=== PATIENT | female | born 1955 | race Caucasian/White ===

== ENCOUNTER 2020-02-29 02:41 | Emergency (ER) | payer MEDICARE, MEDICAID, SELFPAY ==
[2020-02-29 02:48] VITALS: BP 102/38; PULSE 60; RESP 18; TEMP 36.6; O2SAT 100; BMI 27.4
--- NOTE | 2020-02-29 03:34 | ED.MEDCLEAR ---
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 Came here for assistance in placement no other active complaints Related Information Allergies Allergy/AdvReac Type Severity Reaction Status Date / Time No Known Allergies Allergy Verified 02/29/20 03:35 Review of Systems Review of Systems: Constitutional : No Weight loss, No Fever, No Chills ENT/Mouth : No sore throat, No Rhinorrhea Eyes: No Eye Pain, No Swelling Cardiovascular : No Chest Pain, no palpitations Respiratory : No Cough, No Sputum, no shortness of breath Gastrointestinal : no Nausea, No Vomiting, No Diarrhea, No abdominal Pain, no black stools Genitourinary : No Dysuria, No Urinary Frequency Musculoskeletal : No joint pain, No Myalgias, No Joint Swelling Skin : No Skin Lesions, No rash Neuro : ++ Weakness, No Numbness, No Dizziness, No Headache Psych : No Anxiety/Panic, No Depression Heme/Lymph: No Bruising, No Lymphadenopathy Endocrine : No Polyuria, No Polydipsia All other systems reviewed and are negative PMFSH Past Medical History 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 Oriented X3. No acute distress. Eyes: L Pupils ,round and reactive to light. Right pupil fixed with no perception of light ENT: Pharynx normal. Neck: Normal inspection. Neck supple. CVS: Normal heart rate and rhythm. Pulses normal. Respiratory: No respiratory distress. Breath sounds normal. Abdomen: Soft and nontender. Bowel sounds are present, no mass palpable, no CVA tenderness Skin: Skin warm and dry. Normal skin color. Normal skin turgor. Extremities: No lower extremity edema. Neuro: Oriented X 3. Right leg 2/5 weakness No sensory deficit. Course Course Course Narrative: Patient medically cleared for placement will get health and social care teacher involved MDM - Medical Clearance Lab Data Result diagrams: 02/29/20 04:45 02/29/20 04:45 Labs: Lab Results 02/29/20 02/29/20 02/29/20 Range/Units 04:45 04:45 04:45 WBC 8.2 (4.8-10.8) X10*3/uL RBC 3.77 L (4.20-5.50) X10*6/uL Hgb 12.0 (12.0-16.0) g/dl Hct 35.6 L (37-47) % MCV 94.4 (80-98) fL MCH 31.8 (27.0-33.0) pg MCHC 33.7 (31.0-35.0) g/dl RDW 13.1 (11.0-16.0) % Plt Count 255 (160-400) X10*3/uL MPV 9.5 (9.4-12.3) fL Immature Gran % (Auto) 0.1 (0.0-0.4) % Neut % (Auto) 55.5 (45-73) % Lymph % (Auto) 30.2 (20-40) % [place] % (Auto) 9.9 (2-11) % Eos % (Auto) 3.9 (0-4) % Baso % (Auto) 0.4 (0-2) % Lymph # (Auto) 2.5 (1.2-4.9) X10*3/uL [place] # (Auto) 0.8 (0.1-1.2) X10*3/uL Eos # (Auto) 0.3 (0.0-0.4) X10*3/uL Baso # (Auto) 0.0 (0.0-0.2) X10*3/uL Abs Immat Gran (auto) 0.01 (0.00-0.03) X10*3/uL Absolute Neuts (auto) 4.5 (2.0-8.3) X10*3/uL Absolute Nucleated RBC 0.000 (0.0-0.012) X10*3/uL Nucleated RBC % (auto) 0.0 (0.0-0.2) /100WBC Sodium 145 (135-145) mmol/L Potassium 3.5 (3.3-5.1) mmol/l Chloride 110 H (96-108) mmol/L Carbon Dioxide 28 (22-29) mmol/L Anion Gap 11 L (12-20) BUN 11 (9-16) mg/dL Creatinine 0.61 (0.5-1.4) mg/dL Estim Creat Clear Calc 92.1 Estimated GFR > 60 Random Glucose 125 H (60-115) mg/dL Calcium 8.2 L (8.4-10.2) mg/dL Total Bilirubin < 0.2 (0.0-1.0) mg/dL Direct Bilirubin < 0.2 (0.0-0.5) mg/dL AST 13 (5-31) U/L ALT 18 (0-31) U/L Alkaline Phosphatase 70 (39-117) U/L Total Protein 5.6 L (6.5-8.0) g/dL Albumin 3.5 (3.5-5.0) g/dL COVID-19 (JOURDAN) Negative (Negative) COVID-19 Clin Com See Note
--- NOTE | 2020-02-29 03:36 | ECG_ITS ---
Test Reason : nh placement Blood Pressure : / mmHG Vent. Rate : 056 BPM Atrial Rate : 056 BPM P-R Int : 148 ms QRS Dur : 086 ms QT Int : 416 ms P-R-T Axes : 064 -44 047 degrees QTc Int : 401 ms Sinus bradycardia Left axis deviation Abnormal ECG No previous ECGs available Referred By: Ruel Thomson Electronically Signed By:KEVIN HOLM
[2020-02-29 04:00] VITALS: RESP 18
--- NOTE | 2020-02-29 04:10 | PC.NURSE ---
pt is refusing all blood work, covid swab, and ekg at this time. 3 attempts were made. Per patient you just don't fucking get it. I want to be left the fuck alone. I won't be undressed. Fuck you .
[2020-02-29 04:53] LABS: Basophils Percent Auto 0.4 % (0-2); Eosinophils Absolute Auto 0.3 X10*3/uL (0.0-0.4); Eosinophils Percent Auto 3.9 % (0-4); Hematocrit 35.6 % (37-47); Imm Gran Abs Auto 0.01 X10*3/uL (0.00-0.03); Imm Gran Pct Auto 0.1 % (0.0-0.4); Lymphocytes Absolute Auto 2.5 X10*3/uL (1.2-4.9); Lymphocytes Percent Auto 30.2 % (20-40); MANUAL DIFF FLAG NO; Mean Corpuscular HGB Conc 33.7 g/dl (31.0-35.0); Mean Corpuscular Hemoglobin 31.8 pg (27.0-33.0); Mean Corpuscular Volume 94.4 fL (80-98); Mean Platelet Volume 9.5 fL (9.4-12.3); Monocytes Absolute Auto 0.8 X10*3/uL (0.1-1.2); Monocytes Percent Auto 9.9 % (2-11); Neutrophils Absolute Auto 4.5 X10*3/uL (2.0-8.3); Neutrophils Percent Auto 55.5 % (45-73); Platelet Count 255 X10*3/uL (160-400); Red Blood Count 3.77 X10*6/uL (4.20-5.50); Red Cell Distribution Width 13.1 % (11.0-16.0); White Blood Count 8.2 X10*3/uL (4.8-10.8)
[2020-02-29 05:16] LABS: COVID-19 Test Negative (Negative)
[2020-02-29 05:26] LABS: Alanine Aminotransferase 18 U/L (0-31); Albumin Level 3.5 g/dL (3.5-5.0); Alkaline Phosphatase 70 U/L (39-117); Anion Gap 11 (12-20); Aspartate Amino Transferase 13 U/L (5-31); Bilirubin Direct < 0.2 mg/dL (0.0-0.5); Bilirubin Total < 0.2 mg/dL (0.0-1.0); Blood Urea Nitrogen 11 mg/dL (9-16); Calcium 8.2 mg/dL (8.4-10.2); Carbon Dioxide 28 mmol/L (22-29); Chloride 110 mmol/L (96-108); Creatinine Clr Calc Pharmacy 92.1; Estimated Glomerular Filt Rate > 60; Glucose Random 125 mg/dL (60-115); Potassium 3.5 mmol/l (3.3-5.1); Sodium 145 mmol/L (135-145); Total Protein 5.6 g/dL (6.5-8.0)
--- NOTE | 2020-02-29 10:30 | PC.NURSE ---
CASE MGMT IN TO SPEAK WITH PT. PT REQUESTING HOME CARE, NOT [facility]. TO GO HOME. USING BEDPAN
[2020-02-29 10:53] VITALS: BP 101/53; PULSE 55; RESP 16; O2SAT 96
--- NOTE | 2020-02-29 11:02 | MHC.CM.ED ---
CM met with patient at the bedside who reports she is looking for more help at home. Patient does not want to go to [facility]/LTC and reports she is staying at the [facility]. CM gave contact information for [facility] and [facility] live-in care. Reported to nurse and MD patient is all set to go home.
[2020-02-29 12:00] VITALS: BP 102/55; PULSE 62; RESP 18; TEMP 36.6; O2SAT 98
--- NOTE | 2020-02-29 13:05 | ED_ITS ---
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 THOMSON AT ABOUT 07:00, THE PLAN WAS TO WAIT FOR PAINT CREW SUPERVISOR, THE PATIENT WAS SEEN BY THE PAINT CREW SUPERVISOR APPROPRIATE SERVICES WERE ARRANGED, THE PATIENT IS VERY COMFORTABLE WITH A DISCHARGE SHE WILL BE DISCHARGED MDM - Medical Clearance Lab Data Attestation: I reviewed the patient's lab results. Result diagrams: 02/29/20 04:45 02/29/20 04:45 Labs: Lab Results 02/29/20 02/29/20 02/29/20 Range/Units 04:45 04:45 04:45 WBC 8.2 (4.8-10.8) X10*3/uL RBC 3.77 L (4.20-5.50) X10*6/uL Hgb 12.0 (12.0-16.0) g/dl Hct 35.6 L (37-47) % MCV 94.4 (80-98) fL MCH 31.8 (27.0-33.0) pg MCHC 33.7 (31.0-35.0) g/dl RDW 13.1 (11.0-16.0) % Plt Count 255 (160-400) X10*3/uL MPV 9.5 (9.4-12.3) fL Immature Gran % (Auto) 0.1 (0.0-0.4) % Neut % (Auto) 55.5 (45-73) % Lymph % (Auto) 30.2 (20-40) % [place] % (Auto) 9.9 (2-11) % Eos % (Auto) 3.9 (0-4) % Baso % (Auto) 0.4 (0-2) % Lymph # (Auto) 2.5 (1.2-4.9) X10*3/uL [place] # (Auto) 0.8 (0.1-1.2) X10*3/uL Eos # (Auto) 0.3 (0.0-0.4) X10*3/uL Baso # (Auto) 0.0 (0.0-0.2) X10*3/uL Abs Immat Gran (auto) 0.01 (0.00-0.03) X10*3/uL Absolute Neuts (auto) 4.5 (2.0-8.3) X10*3/uL Absolute Nucleated RBC 0.000 (0.0-0.012) X10*3/uL Nucleated RBC % (auto) 0.0 (0.0-0.2) /100WBC Sodium 145 (135-145) mmol/L Potassium 3.5 (3.3-5.1) mmol/l Chloride 110 H (96-108) mmol/L Carbon Dioxide 28 (22-29) mmol/L Anion Gap 11 L (12-20) BUN 11 (9-16) mg/dL Creatinine 0.61 (0.5-1.4) mg/dL Estim Creat Clear Calc 92.1 Estimated GFR > 60 Random Glucose 125 H (60-115) mg/dL Calcium 8.2 L (8.4-10.2) mg/dL Total Bilirubin < 0.2 (0.0-1.0) mg/dL Direct Bilirubin < 0.2 (0.0-0.5) mg/dL AST 13 (5-31) U/L ALT 18 (0-31) U/L Alkaline Phosphatase 70 (39-117) U/L Total Protein 5.6 L (6.5-8.0) g/dL Albumin 3.5 (3.5-5.0) g/dL COVID-19 (JOURDAN) Negative (Negative) COVID-19 Clin Com See Note Discharge Plan Discharge Clinical Impression: Weakness Patient Disposition: Home, Self-Care Instructions: Weakness (ED) Referrals: Physician,Unknown [Primary Care Provider] - 2 days (PLEASE FOLLOW-UP WITH YOUR PRIMARY CARE PHYSICIAN OR RETURN IF YOU WORSEN FEVER ANY CONCERN)
== END 2020-02-29 13:32 | disposition home or self-care (01) ==
PROVIDERS: Internal Medicine; Emergency Provider Emergency Medicine
DX: R53.1 Weakness (principal); F17.200 Nicotine dependence, unspecified, uncomplicated; Z71.6 Tobacco abuse counseling; Z20.828 Contact with and (suspected) exposure to other viral communicable diseases; Z79.899 Other long term (current) drug therapy
CPT/HCPCS: 36415; 80048; 80076; 85025; 87635; 93005; 99284

== ENCOUNTER 2020-03-12 09:18 | Emergency (ER) | payer MEDICARE, MEDICAID, SELFPAY ==
[2020-03-12 09:28] VITALS: BP 126/62; PULSE 58; RESP 16; TEMP 36.6; O2SAT 97; BMI 67.6
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
== END 2020-03-12 11:40 | disposition home or self-care (01) ==
PROVIDERS: Emergency Provider Emergency Medicine
DX: Z74.2 Need for assistance at home and no other household member able to render care (principal); Z99.3 Dependence on wheelchair
CPT/HCPCS: 99283

== ENCOUNTER 2020-03-17 00:31 | Emergency (ER) | payer MEDICARE, MEDICAID, SELFPAY ==
[2020-03-17 00:39] VITALS: RESP 18; BMI 27.4
--- NOTE | 2020-03-17 00:50 | XR_ITS ---
EXAMINATION: XR LUMBOSACRAL SPINE CLINICAL INFORMATION: Severe pain, rule out compression fracture COMPARISON: None TECHNIQUE: Three views of the lumbosacral spine. FINDINGS: There is anatomic alignment of the lumbar vertebral bodies and posterior elements. There is slight superior endplate loss of height at L2 and L4, age-indeterminate. Mild multilevel endplate osteophytes are noted. There is suspected facet arthropathy of the lower lumbar spine. Sacroiliac joints appear intact. Vascular calcification noted. XR/XR lumbar spine 2-3V IMPRESSION: Slightly superior endplate loss of height at L2 and L4, age-indeterminate.
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
[2020-03-17 00:53] VITALS: BP 118/41; PULSE 56; RESP 18; TEMP 36.7; O2SAT 96
[2020-03-17 01:05] LABS: MANUAL DIFF FLAG NO
[2020-03-17 01:06] LABS: Basophils Percent Auto 0.4 % (0-2); Eosinophils Absolute Auto 0.4 X10*3/uL (0.0-0.4); Eosinophils Percent Auto 5.4 % (0-4); Hematocrit 40.9 % (37-47); Hemoglobin 13.7 g/dl (12.0-16.0); Imm Gran Abs Auto 0.01 X10*3/uL (0.00-0.03); Imm Gran Pct Auto 0.1 % (0.0-0.4); Lymphocytes Absolute Auto 2.3 X10*3/uL (1.2-4.9); Lymphocytes Percent Auto 31.5 % (20-40); Mean Corpuscular HGB Conc 33.5 g/dl (31.0-35.0); Mean Corpuscular Hemoglobin 31.9 pg (27.0-33.0); Mean Corpuscular Volume 95.1 fL (80-98); Mean Platelet Volume 8.6 fL (9.4-12.3); Monocytes Absolute Auto 0.8 X10*3/uL (0.1-1.2); Monocytes Percent Auto 11.3 % (2-11); Neutrophils Absolute Auto 3.8 X10*3/uL (2.0-8.3); Neutrophils Percent Auto 51.3 % (45-73); Platelet Count 317 X10*3/uL (160-400); White Blood Count 7.4 X10*3/uL (4.8-10.8)
[2020-03-17] MEDS: Ketorolac Tromethamine 30 MG/ML VIAL 60 MG IM (01:09)
[2020-03-17 01:28] LABS: Alanine Aminotransferase 20 U/L (0-31); Albumin Level 4.2 g/dL (3.5-5.0); Alkaline Phosphatase 86 U/L (39-117); Anion Gap 12 (12-20); Aspartate Amino Transferase 12 U/L (5-31); Bilirubin Total 0.4 mg/dL (0.0-1.0); Blood Urea Nitrogen 18 mg/dL (9-16); Calcium 9.5 mg/dL (8.4-10.2); Carbon Dioxide 30 mmol/L (22-29); Chloride 102 mmol/L (96-108); Creatinine Clr Calc Pharmacy 79.1; Estimated Glomerular Filt Rate > 60; Glucose Random 112 mg/dL (60-115); Potassium 4.1 mmol/l (3.3-5.1); Sodium 140 mmol/L (135-145)
[2020-03-17 02:00] VITALS: RESP 18
== END 2020-03-17 02:55 | disposition home or self-care (01) ==
PROVIDERS: Emergency Provider Emergency Medicine Emergency Medical Services
DX: M54.5 Low back pain (principal); Z87.820 Personal history of traumatic brain injury; F17.210 Nicotine dependence, cigarettes, uncomplicated; Z71.6 Tobacco abuse counseling
CPT/HCPCS: 36415; 72100; 80053; 82550; 85025; 96372; 99284; J1885

== ENCOUNTER 2020-03-19 17:51 | Emergency (ER) | payer MEDICARE, MEDICAID, SELFPAY ==
[2020-03-19 20:27] VITALS: BP 116/47; PULSE 63; RESP 16; TEMP 36.4; O2SAT 95
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
[2020-03-19 22:50] VITALS: BP 119/52; PULSE 58; PULSE 61; RESP 16; TEMP 37.1; O2SAT 96; O2SAT 98; BMI 33.5
--- NOTE | 2020-03-19 23:01 | PC.NURSE ---
PT HAS OWN W/C THIS IS HER BASE.
--- NOTE | 2020-03-20 00:21 | PC.NURSE ---
pt was informed that we had no room and case management spoke with her. pt has a place to stay but does not want to stay with mother inlaw and . winding department supervisor spoke with pt and will can wait in waiting room and go to care home in morning.
--- NOTE | 2020-03-20 00:23 | PC.NURSE ---
pt refusing to use restroom with assist requesting a table and a bedpan states she slide it under herself on her own w/c and pee. pt was informed that no shelters are open at this hour. pt decided to leave and she proceed to dump her bed edmonds on floor. pt left without paperwork.
== END 2020-03-20 00:32 | disposition home or self-care (01) ==
PROVIDERS: Emergency Provider Emergency Medicine
DX: Z72.89 Other problems related to lifestyle (principal)
CPT/HCPCS: 99283; 99284

== ENCOUNTER 2020-03-20 09:30 | Emergency (ER) | payer MEDICARE, MEDICAID, SELFPAY ==
[2020-03-20 09:41] VITALS: BP 114/64; PULSE 62; RESP 18; TEMP 36.3; O2SAT 96; BMI 28.3
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
== END 2020-03-20 11:23 | disposition home or self-care (01) ==
PROVIDERS: Emergency Provider Internal Medicine
DX: R62.7 Adult failure to thrive (principal); Z59.0 Homelessness; F17.200 Nicotine dependence, unspecified, uncomplicated; Z71.6 Tobacco abuse counseling; Z79.899 Other long term (current) drug therapy
CPT/HCPCS: 99283

== ENCOUNTER 2020-03-20 14:01 | Emergency (ER) | payer MEDICARE, MEDICAID, SELFPAY ==
[2020-03-20 14:12] VITALS: BP 121/75; PULSE 73; RESP 16; TEMP 36; O2SAT 97; BMI 29.2
--- NOTE | 2020-03-20 14:37 | PC.NURSE ---
polly from [facility] called regarding pt status
--- NOTE | 2020-03-20 15:17 | PC.NURSE ---
care plan consult in place. pt continues to refuse snf/rehab placement. she does not have another safe discharge plan in place
--- NOTE | 2020-03-20 15:19 | MHC.CM.ED ---
Patient returned to ER again today. T/W attempted to call patient's , Ion at telephone number listed [phone]. Outgoing message is for someone named Joann. Pro, propellant charge zone assembler aware.
--- NOTE | 2020-03-20 15:34 | PC.NURSE ---
pt was provided snacks and drinks. Awaiting CARE team consult.
--- NOTE | 2020-03-20 15:35 | ED_ITS ---
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 Therefore they brought the patient back to our emergency department and patient reports that she did not know that the house had the signs and all the tape up that she did not know that it was not safe to live in. I explained to her that she told us earlier today that the house was safe to live in and that she confirmed that the electricity was on. EMS confirmed that the electricity was on although it is not safe to live in the home therefore patient is back here looking for housing. Denies any SI/HI/auditory visual h allucinations thoughts of self-injury. Reports she has no money to stay in a hotel. Reports that her is trying to get the restraining order that she was unaware about taken off of her so that she can reside in the house so her in her sllhbn-eo-ogy's house in [place]. Patient does not want to go to a skilled nursing. We attempted to give her multiple resources for homeless shelters although they are same due to her being wheelchair-bound she cannot go to a homeless intermediate. Patient denies any additional complaints or concerns at this time. Patient on both visits is very rude swearing name calling saying ?bitch fuck you.? Saying that she is tired of explaining her situation to all of us. Saying that she would do anything including lie to get out of this ?hell hole.? Related Data Previous Rx's Medication Instructions Recorded cyclobenzaprine 10 mg PO Q8H PRN #15 tab 03/17/20 cyclobenzaprine 20 mg PO Q8H PRN #15 tab 03/17/20 ibuprofen 600 mg PO TID PRN #20 tab 03/18/20 Allergies Allergy/AdvReac Type Severity Reaction Status Date / Time No Known Allergies Allergy Verified 02/29/20 03:35 Review of Systems Review of Systems: Constitutional : No Weight loss, No Fever, No Chills, No Night Sweats, No Fatigue, No Malaise ENT/Mouth : No Hearing loss, No Ear Pain, No Nasal Congestion, No Sinus Pain, No Hoarseness, No sore throat, No Rhinorrhea, No Swallowing Difficulty Eyes: No Eye Pain, No Swelling, No Redness, No Foreign Body, No Discharge, No Vision Changes Cardiovascular : No Chest Pain, No SOB, No Dyspnea on Exertion, No Orthopnea, No Edema, No Palpitations Respiratory : No Cough, No Sputum, No Wheezing, No Smoke Exposure, No Dyspnea Gastrointestinal : No Nausea, No Vomiting, No Diarrhea, No Constipation, No abdominal Pain, No Hematochezia, No Melena Genitourinary : no irregular bleeding, No Dysuria, No Urinary Frequency, No Hematuria, No Urinary Incontinence, No Urgency, No Flank Pain, No Urinary Flow Changes, No Hesitancy Musculoskeletal : No joint pain, No Myalgias, No Joint Swelling Skin : No Skin Lesions, No rash Neuro : No Weakness, No Numbness, No Paresthesias, No Loss of Consciousness, No Dizziness, No Headache Psych : + Social Issues, No Anxiety/Panic, No Depression, No SI/HI/AH/VH Heme/Lymph: No Bruising, No Bleeding,No Lymphadenopathy Endocrine : No Polyuria, No Polydipsia, No Temperature Intolerance Yes all other systems are reviewed and are negative [facility] Past Medical History Attestation statement: The following information was validated with the patient. 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 Blood pressure normal. Heart rate normal. Respiration rate normal. Temperature normal. Oxygen saturation normal. Appearance: Alert. Oriented X3. No acute distress. Head: Normal external exam. Normocephalic. Atraumatic. Eyes: PERRLA. EOMI. Conjunctiva and sclera normal. Eyelids normal. ENT: Pharynx normal. Uvula midline. Moist mucous membranes. Neck: Normal inspection. Neck supple. FROM. No adenopathy. No meningeal signs. CVS: Normal heart rate and rhythm. Heart sound normal. No murmurs noted. Pulses normal throughout. Respiratory: No respiratory distress. Painless inspiration. Breath sounds normal. No wheezes/rales/rhonchi noted. Chest nontender. No accessory muscle usage noted or decreased air movement noted. Back: Full range of motion noted. Skin: Skin warm and dry. Normal skin color. Normal skin turgor. No rashes/lesions/lacerations noted. Extremities: Extremities exhibit normal range of motion. Extremities nontender. Neuro: Oriented X 3. No motor deficit. No sensory deficit. Reflexes normal. 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 She is refusing a skilled nursing. We gave her multiple resources for homeless shelters although due to her being wheelchair-bound they will not accept her. Therefore care team consult placed at this time. Reevaluation(s) Reevaluation #1: - patient spoke with her Ion who I confirmed this over the phone that [place] Police contacted [place] police and [place] police went to the mother's house and the Ion sign a release for the restraining order and now she is allowed to go back to the tnpoeq-fl-ygj's house in [place] again I confirmed this over the phone with Ion her . We will schedule for transportation for the patient. Patient denies any additional complaints or concerns. Reports she feels safe at the [facility]. Denies any SI/HI/auditory visual hallucinations thoughts of self-injury. Will be discharging the patient ripped soon. Time: 16:27 Medical Decision Making Medical Records Medical records reviewed: Yes I reviewed the patient's medical records. Critical Care Time Critical Care Time Critical Care Time: Yes Total Critical Care Time: 60 Attestation: I personally attest to this time spent taking care of the patient Discharge Plan Discharge Clinical Impression: Distressed about housing issues Patient Disposition: Home, Self-Care Prescriptions: No Action cyclobenzaprine 10 mg tablet 20 mg PO Q8H PRN (Reason: muscle pain or spasm) Qty: 15 RF: 0 cyclobenzaprine 10 mg tablet 10 mg PO Q8H PRN (Reason: muscle pain or spasm) Qty: 15 RF: 0 ibuprofen 600 mg tablet 600 mg PO TID PRN (Reason: pain) Qty: 20 RF: 0 Referrals: Physician,Unknown [Primary Care Provider] - 2 days (your pcp)
--- NOTE | 2020-03-20 15:43 | PC.NURSE ---
Discussed pts option for rehab/snf - she replies for what? she continues to refuse placement. she reports that her is attempting to get her assistance in going back to [place]
--- NOTE | 2020-03-20 16:02 | MHC.CARE ---
CARE Team consulted with patient and provider, she was provided with a list of shelters and she declined to call or be in a skilled nursing. She also declined to speak with case management in two occasions since all she was requesting a place to stay and/or money since she has been living in a hotel, due to she is to able to return to her home because of the conditions. She declined any help or services CARE team or case management can provide.
--- NOTE | 2020-03-20 16:12 | PC.NURSE ---
Ion #per pt [phone]
--- NOTE | 2020-03-20 18:38 | PC.NURSE ---
pt was given dinner. She is waiting for an ambulance to her mother in laws home in [place]. Saniya CHIN spoke with the Ion that reports that the [place] PD spoke with [place] PD and a release of the restraining order has been filed so that the pt can return to that address temporarily.
== END 2020-03-20 19:30 | disposition home or self-care (01) ==
PROVIDERS: Emergency Provider Internal Medicine
DX: R62.7 Adult failure to thrive (principal); Z59.0 Homelessness; Z79.899 Other long term (current) drug therapy
CPT/HCPCS: 99283; 99291